=== PATIENT | male | born 1980 | race African-American/Black ===

== ENCOUNTER 2022-11-28 16:56 | Inpatient (IN) | payer OTHER ==
[~2022-11-28] VITALS: Ht 160 cm; Wt 96.0 kg
[~2022-11-28 16:56] MED LIST: AMIT25TA20 PO; ASPI81CH43 PO; ATOR20TA50 PO; BENA40TA70 PO; CLON0.3D4 PO; HYDR2TAB58 PO; ONDA-144 PO; SODI500S PO; TOPI100T29 PO
[2022-11-28 17:32] LABS: Basophils # (auto) 0.1 10 ^3/uL (0-0.2); Basophils % (auto) 1.1 % (0.0-2.0); Eosinophils # (auto) 0.1 10 ^3/uL (0-0.8); Eosinophils % (auto) 0.9 % (0.0-7.0); Hematocrit 48.7 % (41.0-53.0); Hemoglobin 16.4 g/dL (13.5-17.5); Lymphocytes # (auto) 2.2 10 ^3/uL (0.4-5.4); Lymphocytes % (auto) 29.5 % (10.0-50.0); Mean Corpuscular Hemoglobin 31.2 pg (28.0-32.0); Mean Corpuscular Hgb Conc. 33.6 g/dL (32.0-36.0); Monocytes # (auto) 0.4 10 ^3/uL (0-1.3); Monocytes % (auto) 5.7 % (0.0-12.0); Neutrophils # (auto) 4.8 10 ^3/uL (1.6-8.6); Neutrophils % (auto) 62.8 % (37.0-80.0); Nucleated Red Blood Cells % 0.2 %; Red Blood Cells 5.23 10^6/uL (4.5-5.90); Red Cell Distribution Width 14.3 % (11.8-14.3); White Blood Cell 7.6 10^3/uL (4.4-10.8)
[2022-11-28] MEDS ORDERED: ONDANSETRON HCL 4 MG/2 ML VIAL IV ONE (17:45)
[2022-11-28] MEDS ORDERED: SODIUM CHLORIDE 0.9% 1,000 ML IV ONE (17:45)
[2022-11-28] MEDS ORDERED: HYDROmorphone HCL 2 MG/ML VL/or syr IV ONE (17:45)
[2022-11-28 17:51] LABS: INR 1.12 (0.9-1.15); Partial Thromboplastin Time 29.6 SEC (24.5-34.5); Prothrombin Time 11.7 sec (9.3-11.8)
[2022-11-28 18:00] LABS: Alanine Aminotransferase 24 U/L (7-40); Alkaline Phosphatase 92 U/L (46-116); Anion Gap 7 (5-15); Aspartate Aminotransferase 19 U/L (13-40); BUN/Creatinine Ratio 7.3 (10.0-20.0); Blood Urea Nitrogen 9 mg/dL (9-23); Calcium 9.9 mg/dL (8.7-10.4); Carbon Dioxide 28 mmol/L (20-30); Chloride 104 mmol/L (98-107); Glucose 86 mg/dL (74-106); Lipase 53 U/L (12-53); Magnesium 2.1 mg/dL (1.6-2.6); Potassium 3.8 mmol/L (3.5-5.1); Sodium 139 mmol/L (136-145)
[2022-11-28 18:01] LABS: Bilirubin, Total 0.6 mg/dL (0.2-1.0); Total Protein 8.5 g/dL (5.7-8.2)
[2022-11-28 19:53] VITALS: PULSE 15; RESP 13; O2SAT 97
[2022-11-28] MEDS ORDERED: amLODIPine BESYLATE 5 MG TAB PO ONE (20:30)
[2022-11-28] MEDS ORDERED: ACETAMINOPHEN 325 MG TAB PO PRN (20:30)
[2022-11-28] MEDS ORDERED: DOCUSATE SOD 100 MG CAP PO PRN (20:30)
[2022-11-28] MEDS ORDERED: TEMAZEPAM 15 MG CAP PO PRN (20:30)
[2022-11-28] MEDS ORDERED: SODIUM CHLORIDE 0.9% 1,000 ML IV SCH (20:30)
[2022-11-28] MEDS: ATORVASTATIN 20 MG TAB PO SCH (21:39)
[2022-11-28] MEDS: hydrALAZINE HCL 20 MG/ML VL IV PRN (22:03)
[2022-11-28 23:06] LABS: Urine Bacteria NONE SEEN /hpf (None Seen); Urine Blood Negative /uL (Negative); Urine Clarity Clear (Clear); Urine Color Yellow (Yellow); Urine Mucus FEW (None Seen); Urine Protein, UAD TRACE (Negative); Urine Specific Gravity 1.023 (1.001-1.035); Urine Urobilinogen Normal (Negative); Urine WBC 1 /hpf (0 - 3); Urine pH 6.5 (5.0-8.0)
[2022-11-28 23:13] LABS: Amphetamine Screen, Urine Neg (NEGATIVE); Barbiturate Scree,Urine Neg (NEGATIVE); Benzodiazephine Screen, Urine Neg (NEGATIVE); Cannabinoid Screen, Urine Pos (NEGATIVE); Cocaine Screen, Urine Neg (NEGATIVE); Opiate Scree,Urine Neg (NEGATIVE); Phencyclidine Screen, Urine Neg (NEGATIVE)
[2022-11-28] MEDS: ONDANSETRON HCL 4 MG/2 ML VIAL IV PRN (23:40)
[2022-11-28] MEDS: HYDROmorphone HCL 2 MG/ML VL/or syr IV PRN (23:40)
[2022-11-29] MEDS: amLODIPine BESYLATE 5 MG TAB PO ONE ×2 (00:11→00:37)
[2022-11-29] MEDS: cloNIDine HCL 0.1 MG TAB PO PRN ×2 (00:32→21:22)
[2022-11-29 05:07] LABS: Basophils # (auto) 0.1 10 ^3/uL (0-0.2); Basophils % (auto) 1.1 % (0.0-2.0); Eosinophils # (auto) 0.1 10 ^3/uL (0-0.8); Eosinophils % (auto) 1.6 % (0.0-7.0); Hematocrit 46.1 % (41.0-53.0); Hemoglobin 15.5 g/dL (13.5-17.5); Lymphocytes # (auto) 1.7 10 ^3/uL (0.4-5.4); Lymphocytes % (auto) 24.6 % (10.0-50.0); Mean Corpuscular Hemoglobin 31.1 pg (28.0-32.0); Mean Corpuscular Hgb Conc. 33.5 g/dL (32.0-36.0); Mean Corpuscular Volume 92.8 fL (80.0-100.0); Monocytes # (auto) 0.6 10 ^3/uL (0-1.3); Monocytes % (auto) 8.6 % (0.0-12.0); Neutrophils # (auto) 4.3 10 ^3/uL (1.6-8.6); Neutrophils % (auto) 64.1 % (37.0-80.0); Nucleated Red Blood Cells % 0.2 %; Red Blood Cells 4.97 10^6/uL (4.5-5.90); Red Cell Distribution Width 14.5 % (11.8-14.3); White Blood Cell 6.8 10^3/uL (4.4-10.8)
[2022-11-29 05:14] LABS: Alanine Aminotransferase 20 U/L (7-40); Albumin 4.4 g/dL (3.2-4.8); Alkaline Phosphatase 84 U/L (46-116); Anion Gap 7 (5-15); Aspartate Aminotransferase 15 U/L (13-40); BUN/Creatinine Ratio 6.4 (10.0-20.0); Blood Urea Nitrogen 7 mg/dL (9-23); Calcium 9.2 mg/dL (8.7-10.4); Carbon Dioxide 26 mmol/L (20-30); Chloride 105 mmol/L (98-107); Glucose 124 mg/dL (74-106); Potassium 3.7 mmol/L (3.5-5.1); Sodium 138 mmol/L (136-145); Total Protein 7.3 g/dL (5.7-8.2)
[2022-11-29 05:20] LABS: Bilirubin, Total 0.7 mg/dL (0.2-1.0)
[2022-11-29] MEDS: hydrALAZINE HCL 20 MG/ML VL IV PRN (06:30)
[2022-11-29 09:15] LABS: Triglycerides 57 mg/dL (< 150)
[2022-11-29 09:16] LABS: LDL Cholesterol 139 mg/dL (< 100)
[2022-11-29 09:17] LABS: Cholesterol 184 mg/dL (< 200); HDL Cholesterol 35 mg/dL (40-59)
[2022-11-29] MEDS ORDERED: ASPirin 81 mg TAB PO SCH (10:00)
[2022-11-29] MEDS ORDERED: amLODIPine BESYLATE 5 MG TAB PO SCH ×3 (10:00)
[2022-11-29] MEDS: HYDROmorphone HCL 2 MG/ML VL/or syr IV PRN ×2 (10:16→18:37)
[2022-11-29] MEDS: ONDANSETRON HCL 4 MG/2 ML VIAL IV PRN ×2 (10:17→18:36)
[2022-11-29] MEDS ORDERED: cloNIDine 0.1 mg/24hr 7 DAY PATCH TD SCH (11:30)
[2022-11-29 13:05] VITALS: BP 153/98; PULSE 72; TEMP 98; O2SAT 98
[2022-11-29] MEDS ORDERED: KETO2CRE4 TOP (13:40)
[2022-11-29] MEDS ORDERED: BUDE1AER4 INH (13:40)
[2022-11-29] MEDS ORDERED: CICL8SOL21 TOP (13:40)
[2022-11-29] MEDS ORDERED: ALBU108A5 INH (13:40)
[2022-11-29 14:00] VITALS: BP 153/98; PULSE 72; RESP 18; TEMP 98; O2SAT 98
[2022-11-29 17:22] VITALS: BP 90/53; PULSE 91; RESP 18; TEMP 98; O2SAT 96
[2022-11-29 20:00] VITALS: PULSE 77; PULSE 82; RESP 16; O2SAT 95
[2022-11-29] MEDS ORDERED: cloNIDine 0.3 mg/24hr 7DAY PATCH TD SCH (20:15)
[2022-11-29] MEDS: ATORVASTATIN 20 MG TAB PO SCH (21:21)
[2022-11-29 22:06] VITALS: BP 166/103; PULSE 77; RESP 16; TEMP 98.3; O2SAT 95
[2022-11-30] MEDS: ONDANSETRON HCL 4 MG/2 ML VIAL IV PRN ×5 (00:24→23:43)
[2022-11-30] MEDS: HYDROmorphone HCL 2 MG/ML VL/or syr IV PRN ×5 (00:24→23:48)
[2022-11-30 05:00] VITALS: BP 148/100; PULSE 71; RESP 20; TEMP 98.3; O2SAT 96
[2022-11-30 08:00] VITALS: PULSE 67
[2022-11-30 08:30] VITALS: BP 149/93; PULSE 72; RESP 20; TEMP 97.1; O2SAT 99
[2022-11-30] MEDS ORDERED: ADENOSINE 80 MG in GIVE UN-DILUTED 0 ML IV ONE (09:00)
[2022-11-30] MEDS ORDERED: cloNIDine 0.3 mg/24hr 7DAY PATCH TD SCH (09:00)
[2022-11-30] MEDS: NIFEdipine ER 30 MG TAB PO SCH (09:36)
[2022-11-30] MEDS: hydrALAZINE HCL 20 MG/ML VL IV PRN ×2 (10:59→21:46)
[2022-11-30 12:04] LABS: Basophils # (auto) 0.1 10 ^3/uL (0-0.2); Basophils % (auto) 1.1 % (0.0-2.0); Eosinophils # (auto) 0.1 10 ^3/uL (0-0.8); Eosinophils % (auto) 2.3 % (0.0-7.0); Hematocrit 51.8 % (41.0-53.0); Hemoglobin 17.5 g/dL (13.5-17.5); Lymphocytes # (auto) 1.9 10 ^3/uL (0.4-5.4); Lymphocytes % (auto) 32.8 % (10.0-50.0); Mean Corpuscular Hemoglobin 31.4 pg (28.0-32.0); Mean Corpuscular Hgb Conc. 33.8 g/dL (32.0-36.0); Mean Corpuscular Volume 92.8 fL (80.0-100.0); Monocytes # (auto) 0.5 10 ^3/uL (0-1.3); Monocytes % (auto) 8.9 % (0.0-12.0); Neutrophils # (auto) 3.2 10 ^3/uL (1.6-8.6); Neutrophils % (auto) 54.9 % (37.0-80.0); Nucleated Red Blood Cells % 0.5 %; Red Blood Cells 5.59 10^6/uL (4.5-5.90); Red Cell Distribution Width 14.6 % (11.8-14.3); White Blood Cell 5.8 10^3/uL (4.4-10.8)
[2022-11-30 12:20] LABS: Alanine Aminotransferase 20 U/L (7-40); Albumin 4.8 g/dL (3.2-4.8); Alkaline Phosphatase 95 U/L (46-116); Anion Gap 5 (5-15); Aspartate Aminotransferase 22 U/L (13-40); BUN/Creatinine Ratio 4.5 (10.0-20.0); Bilirubin, Total 0.8 mg/dL (0.2-1.0); Blood Urea Nitrogen 6 mg/dL (9-23); Calcium 9.8 mg/dL (8.7-10.4); Carbon Dioxide 28 mmol/L (20-30); Chloride 103 mmol/L (98-107); Glucose 96 mg/dL (74-106); Magnesium 2.2 mg/dL (1.6-2.6); Potassium 4.1 mmol/L (3.5-5.1); Sodium 136 mmol/L (136-145); Total Protein 8.2 g/dL (5.7-8.2)
[2022-11-30 12:30] VITALS: BP 152/82; PULSE 77; RESP 18; TEMP 98; O2SAT 96
[2022-11-30 16:23] VITALS: BP 144/82; PULSE 94; RESP 18; TEMP 98.5; O2SAT 98
[2022-11-30 20:00] VITALS: PULSE 81; PULSE 92; RESP 16; O2SAT 95
[2022-11-30] MEDS: ATORVASTATIN 20 MG TAB PO SCH (21:46)
[2022-12-01] VITALS (8 sets, daily range): BP systolic 98–182; BP diastolic 72–121; PULSE 68–117; RESP 16–20; TEMP 97.4–98.6; O2SAT 95–99
[2022-12-01] MEDS: cloNIDine HCL 0.1 MG TAB PO PRN ×2 (00:30→12:30)
[2022-12-01 06:01] LABS: Basophils # (auto) 0.1 10 ^3/uL (0-0.2); Basophils % (auto) 1.5 % (0.0-2.0); Eosinophils # (auto) 0.1 10 ^3/uL (0-0.8); Eosinophils % (auto) 1.1 % (0.0-7.0); Hematocrit 51.9 % (41.0-53.0); Hemoglobin 17.6 g/dL (13.5-17.5); Lymphocytes # (auto) 2.1 10 ^3/uL (0.4-5.4); Lymphocytes % (auto) 30.1 % (10.0-50.0); Mean Corpuscular Hemoglobin 31.6 pg (28.0-32.0); Mean Corpuscular Hgb Conc. 33.9 g/dL (32.0-36.0); Mean Corpuscular Volume 93.3 fL (80.0-100.0); Monocytes # (auto) 0.6 10 ^3/uL (0-1.3); Monocytes % (auto) 8.1 % (0.0-12.0); Neutrophils # (auto) 4.1 10 ^3/uL (1.6-8.6); Neutrophils % (auto) 59.2 % (37.0-80.0); Nucleated Red Blood Cells % 0.5 %; Red Blood Cells 5.57 10^6/uL (4.5-5.90); Red Cell Distribution Width 14.8 % (11.8-14.3); White Blood Cell 6.9 10^3/uL (4.4-10.8)
[2022-12-01 06:12] LABS: Alanine Aminotransferase 18 U/L (7-40); Albumin 4.7 g/dL (3.2-4.8); Alkaline Phosphatase 81 U/L (46-116); Anion Gap 6 (5-15); Aspartate Aminotransferase 16 U/L (13-40); BUN/Creatinine Ratio 5.6 (10.0-20.0); Blood Urea Nitrogen 7 mg/dL (9-23); Calcium 9.9 mg/dL (8.5-10.1); Carbon Dioxide 29 mmol/L (20-30); Chloride 101 mmol/L (98-107); Glucose 91 mg/dL (74-106); Potassium 4.1 mmol/L (3.5-5.1); Sodium 136 mmol/L (136-145)
[2022-12-01 06:13] LABS: Bilirubin, Total 0.8 mg/dL (0.2-1.0); Total Protein 8.1 g/dL (5.7-8.2)
[2022-12-01] MEDS: HYDROmorphone HCL 2 MG/ML VL/or syr IV PRN ×2 (09:55→20:08)
[2022-12-01] MEDS: ONDANSETRON HCL 4 MG/2 ML VIAL IV PRN ×3 (09:56→22:24)
[2022-12-01] MEDS: NIFEdipine ER 30 MG TAB PO SCH (09:56)
[2022-12-01] MEDS ORDERED: NIFEdipine ER 30 MG TAB PO ONE (13:45)
[2022-12-01] MEDS: hydrALAZINE HCL 20 MG/ML VL IV PRN (18:02)
[2022-12-01] MEDS: ATORVASTATIN 20 MG TAB PO SCH (20:06)
[2022-12-02] VITALS (9 sets, daily range): BP systolic 127–165; BP diastolic 92–105; PULSE 91–121; RESP 18–20; TEMP 98.2–98.6; O2SAT 95–97
[2022-12-02] MEDS: HYDROcodone-ACET 5/325MG TAB PO PRN ×2 (01:19→01:32)
[2022-12-02] MEDS: hydrALAZINE HCL 20 MG/ML VL IV PRN (01:39)
[2022-12-02 07:31] LABS: Alanine Aminotransferase 23 U/L (7-40); Albumin 4.7 g/dL (3.2-4.8); Alkaline Phosphatase 103 U/L (46-116); Anion Gap 5 (5-15); Aspartate Aminotransferase 19 U/L (13-40); BUN/Creatinine Ratio 6.4 (10.0-20.0); Bilirubin, Total 0.5 mg/dL (0.2-1.0); Blood Urea Nitrogen 9 mg/dL (9-23); Carbon Dioxide 30 mmol/L (20-30); Chloride 104 mmol/L (98-107); Glucose 103 mg/dL (74-106); Magnesium 2.1 mg/dL (1.6-2.6); Potassium 4.2 mmol/L (3.5-5.1); Sodium 139 mmol/L (136-145)
[2022-12-02 07:51] LABS: Basophils # (auto) 0.1 10 ^3/uL (0-0.2); Basophils % (auto) 1.3 % (0.0-2.0); Eosinophils # (auto) 0.1 10 ^3/uL (0-0.8); Eosinophils % (auto) 2.3 % (0.0-7.0); Hemoglobin 17.6 g/dL (13.5-17.5); Lymphocytes # (auto) 2.2 10 ^3/uL (0.4-5.4); Lymphocytes % (auto) 35.6 % (10.0-50.0); Mean Corpuscular Hemoglobin 31.9 pg (28.0-32.0); Mean Corpuscular Hgb Conc. 33.9 g/dL (32.0-36.0); Monocytes # (auto) 0.5 10 ^3/uL (0-1.3); Monocytes % (auto) 8.8 % (0.0-12.0); Neutrophils # (auto) 3.2 10 ^3/uL (1.6-8.6); Nucleated Red Blood Cells % 0.4 %; Red Blood Cells 5.53 10^6/uL (4.5-5.90); Red Cell Distribution Width 14.4 % (11.8-14.3); White Blood Cell 6.2 10^3/uL (4.4-10.8)
[2022-12-02] MEDS ORDERED: NIFEdipine ER 30 MG TAB PO SCH (10:00)
[2022-12-02] MEDS: HYDROmorphone HCL 2 MG/ML VL/or syr IV PRN (11:57)
[2022-12-02] MEDS: ONDANSETRON HCL 4 MG/2 ML VIAL IV PRN (11:57)
[2022-12-02] MEDS: cloNIDine HCL 0.1 MG TAB PO PRN (12:39)
[2022-12-02] MEDS: ATORVASTATIN 20 MG TAB PO SCH (20:38)
== END 2022-12-02 21:50 | disposition home or self-care (01) | DRG 199 ==
LOC: EDBD 16:56 → ER 16:56 → TELE 20:50 → EAST 11-29 11:50 → TELE-EAST 11-30 10:05
PROVIDERS: ADMIT Internal Medicine; ATTEND Student in an Organized Health Care Education/Training Program
DX: I16.0 Hypertensive urgency (principal); N17.0 Acute kidney failure with tubular necrosis; Z86.74 Personal history of sudden cardiac arrest; E03.9 Hypothyroidism, unspecified; M79.7 Fibromyalgia; I10 Essential (primary) hypertension; E66.9 Obesity, unspecified; I25.10 Atherosclerotic heart disease of native coronary artery without angina pectoris; E78.5 Hyperlipidemia, unspecified; R13.10 Dysphagia, unspecified; Z80.3 Family history of malignant neoplasm of breast; I25.2 Old myocardial infarction; I69.391 Dysphagia following cerebral infarction; Z80.7 Family history of other malignant neoplasms of lymphoid, hematopoietic and related tissues; Z82.49 Family history of ischemic heart disease and other diseases of the circulatory system; Z83.3 Family history of diabetes mellitus; Z95.5 Presence of coronary angioplasty implant and graft; Z68.37 Body mass index [BMI] 37.0-37.9, adult; Z88.6 Allergy status to analgesic agent; Z88.8 Allergy status to other drugs, medicaments and biological substances
CPT/HCPCS: 36415; 70450; 71045; 71250; 78452; 78582; 80053; 80061; 80307; 81001; 83036; 83690; 83735; 83880; 84443; 84484; 85025; 85379; 85610; 85730; 93005; 93017; 93306; 93970; 96360; 96374; 96375; G0378; J0153; J2405